=== PATIENT | female | born 1995 | race African-American/Black ===

== ENCOUNTER 2020-12-21 20:16 | Emergency (ER) | payer OTHER ==
[2020-12-21 20:48] VITALS: BP 121/82; PULSE 96; TEMP 98.7; BMI 46.6
[2020-12-21] MEDS ORDERED: DEXAMETHASONE SOD PHOSPHATE 10 MG/1 ML VIAL IM ONE (21:13)
[2020-12-21] MEDS ORDERED: DEXAMETHASONE SOD PHOSPHATE 10 MG/1 ML VIAL ONE (21:26)
== END 2020-12-21 21:42 | disposition home or self-care (01) ==
LOC: JER 20:16
PROC: 3E023NZ Introduction of Analgesics, Hypnotics, Sedatives into Muscle, Percutaneous Approach (ICD-10-PCS; principal; 2020-12-21)
DX: L52 Erythema nodosum (principal)
CPT/HCPCS: 99284-25; J1100

== ENCOUNTER 2021-05-06 13:33 | Emergency (ER) | payer OTHER ==
[2021-05-06 14:03] VITALS: BP 122/61; PULSE 80; TEMP 98; BMI 35.5
[2021-05-06] MEDS ORDERED: ACETAMINOPHEN 500 MG TABLET (FP) PO ONE (15:00)
[2021-05-06] MEDS ORDERED: ACETAMINOPHEN 500 MG TABLET (FP) ONE (15:00)
== END 2021-05-06 15:22 | disposition home or self-care (01) ==
LOC: JER 13:33 → JERFT 13:33
DX: M76.31 Iliotibial band syndrome, right leg (principal)
CPT/HCPCS: 99283-25

== ENCOUNTER 2022-01-10 21:36 | Emergency (ER) | payer SELFPAY ==
[2022-01-10 21:55] VITALS: BMI 29.0
[2022-01-10] MEDS ORDERED: ACETAMINOPHEN 1000 MG/100 ML BAG IVPB ONE (23:08)
[2022-01-10] MEDS ORDERED: ACETAMINOPHEN INJECTION 100 ML IVPB ONE (23:22)
[2022-01-10] MEDS ORDERED: SODIUM CHLORIDE 0.9% 500 ML INFUS.BAG IV ONE (23:34)
[2022-01-11] MEDS ORDERED: KETOROLAC TROMETHAMINE 30 MG/1 ML VIAL IVPUSH ONE (01:47)
[2022-01-11] MEDS ORDERED: KETOROLAC TROMETHAMINE 30 MG/1 ML VIAL ONE (01:53)
[2022-01-11 03:19] LABS: BASO % 0.6 % (0-2.0); HEMOGLOBIN 11.5 GM/dL (10.7-15.3); LYMPH % 45.6 % (8-40); MCH 28.1 pg (25.7-33.7); MCHC 32.9 g/dl (32.0-36.0); MEAN CELL VOLUME 85.5 fl (80-96); MEAN PLT VOLUME 9.6 fl (7.5-11.1); MONO % 10.9 % (3.8-10.2); NEUT % 42.9 % (42.8-82.8); PLATELET COUNT 144 10^3/uL (134-434); RBC 4.09 M/mm3 (3.60-5.2); RDW 13.9 % (11.6-15.6)
[2022-01-11 03:44] LABS: CALCIUM 8.3 mg/dL (8.5-10.1)
[2022-01-11 03:47] LABS: CREATININE 0.8 mg/dL (0.55-1.3)
[2022-01-11 03:49] LABS: BILIRUBIN,TOTAL 0.2 mg/dL (0.2-1); TOT PROT 6.6 g/dl (6.4-8.2)
[2022-01-11 05:09] LABS: URINE APPEARANCE CLEAR; URINE BILIRUBIN NEGATIVE (NEGATIVE); URINE COLOR YELLOW; URINE GLUCOSE (UA) NEGATIVE (NEGATIVE); URINE KETONE NEGATIVE (NEGATIVE); URINE LEUK ESTERASE NEGATIVE (NEGATIVE); URINE NITRITE NEGATIVE (NEGATIVE); URINE PROTEIN NEGATIVE (NEGATIVE); URINE UROBILINOGEN 0.2 mg/dL (0.2-1.0)
[2022-01-11] MEDS ORDERED: SODIUM CHLORIDE 1,000 ML IV ONE (07:18)
[2022-01-11] MEDS ORDERED: ACETAMINOPHEN 1000 MG/100 ML BAG IVPB ONE (08:03)
[2022-01-11] MEDS ORDERED: ACETAMINOPHEN INJECTION 100 ML IVPB ONE (08:09)
[2022-01-11 09:58] VITALS: BP 107/69; PULSE 62; RESP 18; TEMP 97.8
== END 2022-01-11 10:18 | disposition home or self-care (01) ==
LOC: JER 21:36
PROC: 3E033GC Introduction of Other Therapeutic Substance into Peripheral Vein, Percutaneous Approach (ICD-10-PCS; principal; 2022-01-10)
DX: B34.9 Viral infection, unspecified (principal); J32.9 Chronic sinusitis, unspecified
CPT/HCPCS: 0241U-QW; 36415; 70450-TC; 70460-TC; 70486-TC; 71045-TC-FY; 80053; 81003; 82550; 84703; 85025; 87086; 99285-25; Q9967